=== PATIENT | female | born 2000 | race American Indian/Alaskan Native ===

== ENCOUNTER 2022-01-25 13:24 | Emergency (ER) | payer MEDICAID ==
[2022-01-25 14:38] VITALS: BP 111/68
[2022-01-25] MEDS ORDERED: IBUPROFEN 800 MG TAB PO ONE (21:06)
[2022-01-25] MEDS ORDERED: ONDANSETRON 4 MG/2 ML INJ IV ONE (21:06)
[2022-01-25] MEDS ORDERED: SODIUM CHLORIDE 0.9% 1000 ML 1,000 ML IV ONE (21:06)
[2022-01-25 21:49] LABS: Basophils % (Auto) 0.4 % (0.0-1.8); Hematocrit 40.9 % (30.3-42.9); Hemoglobin 13.4 gm/dl (10.1-14.3); Lymphocytes # (Auto) 0.7 K/mm3 (1.2-5.4); Lymphocytes % (Auto) 12.7 % (13.4-35.0); Mean Corpuscular HGB Conc 33 % (30-34); Mean Corpuscular Volume 90 fl (79-97); Monocytes # (Auto) 0.9 K/mm3 (0.0-0.8); Monocytes % (Auto) 15.3 % (0.0-7.3); Platelet Count 202 K/mm3 (140-440); Red Blood Count 4.56 M/mm3 (3.65-5.03); Red Cell Distribution Width 13.4 % (13.2-15.2)
[2022-01-25 21:56] LABS: Color,Urine Straw (Yellow)
[2022-01-25 22:00] LABS: Mucus,Urine FEW /HPF
[2022-01-25 22:02] LABS: Alanine Aminotransferase 14 units/L (7-56); Albumin 5.1 g/dL (3.9-5); Blood Urea Nitrogen 10 mg/dL (7-17); Calcium 9.5 mg/dL (8.4-10.2); Hemolysis Index 6
[2022-01-25 22:10] LABS: BUN/Creatinine Ratio 14
--- NOTE | 2022-01-25 22:41 | Emergency Department Report ---
ED General Adult HPI - General Chief complaint: Upper Respiratory Infection Stated complaint: FEVER,NAUSES,LACK OF ENERGY Time Seen by Provider: 01/25/22 21:05 Source: patient Mode of arrival: Ambulatory Limitations: No Limitations - History of Present Illness Initial comments: Is a 21-year-old female who presents for nausea fever cough chills x3 days. Denies history of asthma and has been no shortness of breath or wheezing. Primary complaint is generalized malaise. Symptoms are exacerbated by activity and eating. Symptoms are relieved by nothing tried. Patient is caring for her small children at home. Patient did drive self to ED tonight patient is tolerating p.o. intake at this time. Symptoms are rated at 3/10. No T-max noted at home temperature wound 99 3 in triage today. Severity scale (0 -10): 7 - Related Data Previous Rx's Medication Instructions Recorded Last Taken Type Guaifenesin/Pseudoephedrne HCl 1 tab PO BID PRN #20 tab 01/25/22 Unknown Rx [Mucinex D ER 1,200-120 mg Tab] Ibuprofen [Motrin 800 MG tab] 800 mg PO Q8HR PRN #30 tablet 01/25/22 Unknown Rx Ondansetron [Zofran Odt] 4 mg PO Q8HR PRN #15 tab.rapdis 01/25/22 Unknown Rx Allergies Allergy/AdvReac Type Severity Reaction Status Date / Time No Known Allergies Allergy Unverified 01/25/22 14:37 ED Review of Systems ROS: Stated complaint: FEVER,NAUSES,LACK OF ENERGY Other details as noted in HPI Constitutional: chills, fever, malaise Eyes: denies: eye pain, eye discharge, vision change ENT: congestion. denies: ear pain, throat pain Respiratory: cough. denies: shortness of breath, wheezing Cardiovascular: denies: chest pain, palpitations Endocrine: no symptoms reported Gastrointestinal: nausea. denies: abdominal pain, vomiting, diarrhea Genitourinary: denies: urgency, dysuria, discharge Musculoskeletal: denies: back pain, joint swelling, arthralgia Skin: denies: rash, lesions Neurological: headache, weakness. denies: numbness, paresthesias, confusion, vertigo Psychiatric: denies: anxiety, depression Hematological/Lymphatic: denies: easy bleeding, easy bruising ED Past Medical Hx - Past Medical History Previous Medical History?: No - Surgical History Past Surgical History?: No - Medications Home Medications: Home Medications Medication Instructions Recorded Confirmed Last Taken Type Guaifenesin/Pseudoephedrne HCl 1 tab PO BID PRN #20 tab 01/25/22 Unknown Rx [Mucinex D ER 1,200-120 mg Tab] Ibuprofen [Motrin 800 MG tab] 800 mg PO Q8HR PRN #30 tablet 01/25/22 Unknown Rx Ondansetron [Zofran Odt] 4 mg PO Q8HR PRN #15 tab.rapdis 01/25/22 Unknown Rx ED Physical Exam - General Limitations: No Limitations General appearance: alert, in no apparent distress - Head Head exam: Present: normocephalic, normal inspection - Eye Eye exam: Present: PERRL, EOMI Pupils: Present: normal accommodation - ENT ENT exam: Present: normal orophraynx, mucous membranes moist, TM's normal bilaterally, normal external ear exam - Neck Neck exam: Present: normal inspection, full ROM. Absent: tenderness, lymphadenopathy, thyromegaly - Respiratory Respiratory exam: Present: normal lung sounds bilaterally. Absent: respiratory distress, wheezes, stridor, chest wall tenderness - Cardiovascular Cardiovascular Exam: Present: regular rate, normal rhythm, normal heart sounds - GI/Abdominal GI/Abdominal exam: Present: soft, normal bowel sounds. Absent: distended, tenderness - Rectal Rectal exam: Present: deferred - Extremities Exam Extremities exam: Present: normal inspection, full ROM, normal capillary refill. Absent: tenderness - Back Exam Back exam: Present: normal inspection, full ROM. Absent: CVA tenderness (R), CVA tenderness (L) - Neurological Exam Neurological exam: Present: alert, oriented X3, CN II-XII intact, normal gait - Expanded Neurological Exam Expanded Patient oriented to: Present: person, place, time Speech: Present: fluid speech Motor strength exam: RUE: 5, LUE: 5, RLE: 5, LLE: 5 Best Eye Response ([place]): (4) open spontaneously Best Motor Response ([place]): (6) obeys commands Best Verbal Response ([place]): (5) oriented Jax Total: 15 - Psychiatric Psychiatric exam: Present: normal affect, normal mood - Skin Skin exam: Present: warm, dry, intact, normal color. Absent: rash ED Course Vital Signs 01/25/22 14:35 Temperature 99.2 F Pulse Rate 118 H Respiratory 18 Rate Blood Pressure 111/68 O2 Sat by Pulse 98 Oximetry ED Medical Decision Making - Lab Data Result diagrams: 01/25/22 21:09 01/25/22 21:09 Labs 01/25/22 01/25/22 01/25/22 15:13 21:09 21:09 WBC 5.7 RBC 4.56 Hgb 13.4 Hct 40.9 MCV 90 MCH 30 MCHC 33 RDW 13.4 Plt Count 202 Lymph % (Auto) 12.7 L [place] % (Auto) 15.3 H Eos % (Auto) 0.0 Baso % (Auto) 0.4 Lymph # (Auto) 0.7 L [place] # (Auto) 0.9 H Eos # (Auto) 0.0 Baso # (Auto) 0.0 Seg Neutrophils % 71.6 H Seg Neutrophils # 4.1 Sodium 138 Carbon Dioxide 26 BUN 10 Creatinine 0.7 Estimated GFR > 60 BUN/Creatinine Ratio 14 Glucose 91 Calcium 9.5 Total Bilirubin 1.10 AST 23 ALT 14 Alkaline Phosphatase 73 Total Protein 8.2 Albumin 5.1 H Albumin/Globulin Ratio 1.6 HCG, Quant Urine Color Urine Turbidity Specific [place] (Man) Ur Protein (Man) Ur Ketones (Man) Ur Nitrite (Man) Urine Bilirubin (Man) Leukocyte Esterase (Man) Urine WBC (Auto) Urine RBC (Auto) U Epithel Cells (Auto) Urine RBC (Manual) Urine Mucus Influenza A (RT-PCR) Positive A Influenza B (RT-PCR) Negative 01/25/22 01/25/22 21:09 Unknown WBC RBC Hgb Hct MCV MCH MCHC RDW Plt Count Lymph % (Auto) [place] % (Auto) Eos % (Auto) Baso % (Auto) Lymph # (Auto) [place] # (Auto) Eos # (Auto) Baso # (Auto) Seg Neutrophils % Seg Neutrophils # Sodium Carbon Dioxide BUN Creatinine Estimated GFR BUN/Creatinine Ratio Glucose Calcium Total Bilirubin AST ALT Alkaline Phosphatase Total Protein Albumin Albumin/Globulin Ratio HCG, Quant 1.00 Urine Color Straw Urine Turbidity Clear Specific [place] (Man) 1.015 Ur Protein (Man) <30 mg dl Ur Ketones (Man) 2+ Ur Nitrite (Man) Negative Urine Bilirubin (Man) Negative Leukocyte Esterase (Man) Negative Urine WBC (Auto) 3.0 Urine RBC (Auto) 2.0 U Epithel Cells (Auto) 1.0 Urine RBC (Manual) Negative Urine Mucus Few Influenza A (RT-PCR) Influenza B (RT-PCR) - Medical Decision Making Influenza A is positive. However patient is tolerating p.o. intake plan DC to home, treat symptoms. Continue to hydrate, follow-up with primary care doctor in 2 to 3 days. Return to ED should symptoms worsen. Critical care attestation.: If time is entered above; I have spent that time in minutes in the direct care of this critically ill patient, excluding procedure time. ED Disposition Clinical Impression: Influenza A Disposition: 01 HOME / SELF CARE / HOMELESS Is pt being admited?: No Does the pt Need Aspirin: No Condition: Stable Instructions: Influenza, Adult, [id number], Viral Respiratory Infection, [id number] Additional Instructions: You have influenza A, take medications as prescribed, hydrate as directed. Follow-up with your doctor in 2 to 3 days. Return to emergency department should symptoms worsen. Prescriptions: Ibuprofen [Motrin 800 MG tab] 800 mg PO Q8HR PRN #30 tablet PRN Reason: pain fever Guaifenesin/Pseudoephedrne HCl [Mucinex D ER 1,200-120 mg Tab] 1 tab PO BID PRN #20 tab PRN Reason: Congestion Cough Ondansetron [Zofran Odt] 4 mg PO Q8HR PRN #15 tab.rapdis PRN Reason: Nausea And Vomiting Referrals: AMY MARTIN MD [Staff Physician] - 3-5 Days Forms: Work/School Release Form(ED) Time of Disposition: 22:46
--- NOTE | 2022-01-25 22:49 | XRay Report ---
CHEST 2 VIEWS INDICATION / CLINICAL INFORMATION: cough fever. COMPARISON: None available. FINDINGS: SUPPORT DEVICES: None. HEART / MEDIASTINUM: No significant abnormality. LUNGS / PLEURA: No significant pulmonary or pleural abnormality. No pneumothorax. ADDITIONAL FINDINGS: No significant additional findings. IMPRESSION: 1. No acute findings. Signer Name: Guerrero Gotti MD Signed: 01/25/2022 10:45 PM Workstation Name: [employer]
== END 2022-01-25 23:55 | disposition home or self-care (01) ==
LOC: ED 13:24
DX: J10.1 Influenza due to other identified influenza virus with other respiratory manifestations (principal)
CPT/HCPCS: 36415; 71046; 80053; 81001; 84702; 85025; 87502; 96361; 96374; 99284; J2405; J7030